=== PATIENT | male | born 1975 | race Caucasian/White ===

== ENCOUNTER 2022-04-22 16:41 | Observation (INO) | payer BC, OTHER ==
[~2022-04-22] VITALS: Ht 177.8 cm; Wt 108.7 kg
[2022-04-22] MEDS ORDERED: CEPH500C PO (16:50)
[2022-04-22] MEDS ORDERED: NS 1,000 ML IV ONE ×2 (17:00→20:10)
[2022-04-22] MEDS ORDERED: ACETAMINOPHEN 325 MG TAB PO ONE (17:15)
[2022-04-22 17:53] LABS: BASO % 0.3 % (0.0-1.0); EOS % 0.1 % (0.0-3.0); HEMATOCRIT 44.9 % (42.0-52.0); HEMOGLOBIN 15.9 g/dl (13.5-17.5); LYMPH # 0.6 10^3/uL (1.5-5.0); LYMPH % 6.6 % (24.0-44.0); MEAN CORPUSCULAR HEMOGLOBIN 29.6 pg (27.0-33.0); MEAN CORPUSCULAR HGB CONC 35.4 g/dl (32.0-36.5); MEAN CORPUSCULAR VOLUME 83.6 fl (80.0-96.0); MONO % 10.9 % (2.0-8.0); NEUTROPHILS # 7.7 10^3/uL (1.5-8.5); NEUTROPHILS % 81.8 % (36.0-66.0); PLATELET COUNT, AUTOMATED 142 10^3/uL (150-450); RED BLOOD COUNT 5.37 10^6/uL (4.30-6.10); WHITE BLOOD COUNT 9.4 10^3/uL (4.0-10.0)
[2022-04-22 18:22] LABS: BLOOD UREA NITROGEN 15 MG/DL (7-18); CALCIUM LEVEL 8.5 MG/DL (8.5-10.1); CARBON DIOXIDE LEVEL 25 MEQ/L (21-32); CHLORIDE LEVEL 103 MEQ/L (98-107); CREATININE FOR GFR 0.97 MG/DL (0.70-1.30); GLOMERULAR FILTRATION RATE > 60.0 (>60); GLUCOSE, FASTING 106 MG/DL (70-100); POTASSIUM SERUM 3.6 MEQ/L (3.5-5.1); SODIUM LEVEL 135 MEQ/L (136-145)
[2022-04-22 18:25] LABS: ALBUMIN 3.4 GM/DL (3.2-5.2); BILIRUBIN,DIRECT 0.3 MG/DL (0.0-0.2); TOTAL PROTEIN 6.2 GM/DL (6.4-8.2)
[2022-04-22] MEDS ORDERED: KETOROLAC 30 MG/ML 1ML VIAL IV ONE (18:30)
[2022-04-22] MEDS ORDERED: ISOVUE-370 76% 100ML VIAL As Ordered ONE (18:30)
[2022-04-22] MEDS ORDERED: MORPHINE 4 MG/ML 1ML VIAL/SYRINGE IV ONE ×2 (18:45→20:50)
[2022-04-22 19:36] LABS: GC DNA AMPLIFICATION NEGATIVE (NEGATIVE)
[2022-04-22] MEDS ORDERED: cefTRIAXone SOD 1 GM in D5W MINI-BAG PLUS 50 ML IV ONE (20:35)
[2022-04-22] MEDS ORDERED: ONDANSETRON 4MG 2ML VIAL IV ONE (20:50)
[2022-04-22] MEDS ORDERED: TAMS1CAP17 PO (20:57)
[2022-04-22] MEDS ORDERED: OMEP-173 PO (20:57)
[2022-04-22] MEDS ORDERED: DESL1TAB3 PO (20:57)
[2022-04-22] MEDS ORDERED: FLUTISP (20:57)
[2022-04-22] MEDS ORDERED: HOME MED LIST COMPLETE! XX SCH (21:00)
[2022-04-22] MEDS: NS 1,000 ML IV SCH (21:10)
[2022-04-22] MEDS ORDERED: ACETAMINOPHEN TAB 650MG DOSE (2X325MG) PO PRN (21:10)
[2022-04-22] MEDS ORDERED: KETOROLAC 30 MG/ML 1ML VIAL IV PRN (21:10)
[2022-04-22 21:57] LABS: RSV AMPLIFICATION NEGATIVE (NEGATIVE)
[2022-04-23 06:34] LABS: BLOOD UREA NITROGEN 13 MG/DL (7-18); CALCIUM LEVEL 7.9 MG/DL (8.5-10.1); CARBON DIOXIDE LEVEL 27 MEQ/L (21-32); CHLORIDE LEVEL 109 MEQ/L (98-107); CREATININE FOR GFR 0.67 MG/DL (0.70-1.30); GLOMERULAR FILTRATION RATE > 60.0 (>60); GLUCOSE, FASTING 96 MG/DL (70-100); POTASSIUM SERUM 3.9 MEQ/L (3.5-5.1); SODIUM LEVEL 140 MEQ/L (136-145)
[2022-04-23] MEDS: NS 1,000 ML IV SCH (06:49)
[2022-04-23 09:15] VITALS: BP 137/94
[2022-04-23] MEDS: IBUPROFEN 800 MG TAB PO PRN ×2 (09:19→18:11)
[2022-04-23] MEDS: LIDOCAINE 5% (LIDODERM) PATCH TOP SCH (09:20)
[2022-04-23] MEDS ORDERED: diphenhydrAMINE 50MG/ML VIAL (J1200) IV ONE (13:00)
[2022-04-23] MEDS ORDERED: METOCLOPRAMIDE INJ 10MG/2ML VIAL (J2765 PER 1) IV ONE (13:00)
[2022-04-23 14:00] VITALS: BP 140/81
[2022-04-23] MEDS ORDERED: cefTRIAXone SOD 1 GM in D5W MINI-BAG PLUS 50 ML IV SCH (20:00)
[2022-04-23] MEDS ORDERED: **NOTE PATIENT COMMENT** MISC XX SCH (21:00)
[2022-04-23 22:00] VITALS: BP 144/89
[2022-04-24 06:00] VITALS: BP 141/87
[2022-04-24 06:48] LABS: HEMATOCRIT 41.4 % (42.0-52.0); HEMOGLOBIN 14.6 g/dl (13.5-17.5); MEAN CORPUSCULAR HEMOGLOBIN 29.4 pg (27.0-33.0); MEAN CORPUSCULAR HGB CONC 35.3 g/dl (32.0-36.5); MEAN CORPUSCULAR VOLUME 83.5 fl (80.0-96.0); PLATELET COUNT, AUTOMATED 151 10^3/uL (150-450); RED BLOOD COUNT 4.96 10^6/uL (4.30-6.10); WHITE BLOOD COUNT 6.7 10^3/uL (4.0-10.0)
[2022-04-24 07:24] LABS: BLOOD UREA NITROGEN 12 MG/DL (7-18); CALCIUM LEVEL 8.4 MG/DL (8.5-10.1); CARBON DIOXIDE LEVEL 26 MEQ/L (21-32); CHLORIDE LEVEL 109 MEQ/L (98-107); GLOMERULAR FILTRATION RATE > 60.0 (>60); GLUCOSE, FASTING 101 MG/DL (70-100); SODIUM LEVEL 140 MEQ/L (136-145)
[2022-04-24] MEDS: LIDOCAINE 5% (LIDODERM) PATCH TOP SCH (09:00)
[2022-04-24] MEDS: IBUPROFEN 800 MG TAB PO PRN (09:26)
[2022-04-24] MEDS ORDERED: LEVO1TAB40 PO (09:57)
== END 2022-04-24 12:30 | disposition home or self-care (01) ==
LOC: M ED 16:41 → M ED INP 21:09 → ENRESERV 04-23 07:42 → M MS5PR 04-23 09:05
PROVIDERS: ADMIT Internal Medicine; ATTEND Internal Medicine
DX: N10 Acute pyelonephritis (principal); A41.9 Sepsis, unspecified organism; R91.1 Solitary pulmonary nodule; E86.0 Dehydration; R00.0 Tachycardia, unspecified; R51.9 Headache, unspecified; Z87.440 Personal history of urinary (tract) infections; Z96.0 Presence of urogenital implants; Q62.8 Other congenital malformations of ureter; I45.10 Unspecified right bundle-branch block; Z79.899 Other long term (current) drug therapy; Z79.2 Long term (current) use of antibiotics
CPT/HCPCS: 36415; 74177; 80048; 80076; 81001; 83605; 83690; 85025; 85027; 87040; 87086; 87631; 87661; 87810; 87850; 93005; 96361; 96365; 96366; 96375; 96376; 99284; J0696; J1200; J1885; J2270; J2405; J2765; Q9967